=== PATIENT | female | born 1990 | race Caucasian/White ===

== ENCOUNTER 2023-11-04 19:07 | Observation (INO) ==
[2023-11-04] MEDS: Ondansetron 4 mg VIAL 2 MG/ML 2 ml VIAL IV ONE (19:38)
[2023-11-04] MEDS: Morphine 4 MG/ML VIAL (1 ml) IV ONE ×2 (19:38→21:28)
[2023-11-04] MEDS: Lactated Ringers 1000 ml BAG 1,000 ML IV ONE (19:39)
[2023-11-04 19:47] LABS: ABS Eosinophils 0.1 10^3/uL (0.0-0.5); ABS Monocytes 0.4 10^3/uL (0.0-0.9); ABS Neutrophils 5.5 10^3/uL (1.5-7.6); ABS Nucleated RBC 0.01 10^3/ul; Eosinophil % 1.1 %; Hematocrit 43.7 % (35-45); Hemoglobin 15.8 g/dL (11.5-14.3); Lymphocyte % 14.6 %; Mean Corpuscular Hemoglobin 31.1 pg (27-33); Mean Corpuscular Volume 86.3 fL (80-97); Nucleated Red Blood Cells % 0.2 %/100WBC (0.0-0.8); Platelet Count 220 10^3/uL (150-450); Red Blood Count 5.07 10^6/uL (3.63-4.92); Red Cell Distribution Width 12.3 % (12-17)
[2023-11-04 20:16] LABS: Urine Appearance Turbid; Urine Bilirubin Negative (Negative); Urine Blood 1+ (Negative); Urine Color Yellow; Urine Glucose Negative (Negative); Urine Ketones 1+ (Negative); Urine Nitrite Negative (Negative); Urine Protein 1+ (>=30 mg/dL) (Negative); Urine Specific Gravity 1.024 (1.002-1.030); Urine Urobilinogen Negative (Negative); Urine pH 8.5 (5.0-8.0)
[2023-11-04 20:26] LABS: Albumin 4.8 g/dL (3.2-5.2); Albumin/Globulin Ratio 1.9 (1-3); C Reactive Protein 6.58 mg/L (<8.01); Calcium 10.2 mg/dL (8.6-10.3); Creatinine, Serum 0.88 mg/dL (0.51-0.95); Globulin 2.5 g/dL (2-4); Potassium 3.9 mmol/L (3.5-5.0); Total Bilirubin 1.6 mg/dL (0.2-1.0); Total Protein 7.3 g/dL (6.4-8.9); Urine Bacteria Absent /HPF (Absent); Urine Red Blood Cell 1+(3-5/hpf) /HPF (0-Trace); Urine Squamous Epithelial Cell Present /HPF (Absent); Urine White Blood Cell 1+(6-10/hpf) /HPF (0-Trace)
[2023-11-04 20:39] LABS: High Sens Troponin Baseline < 3 pg/mL (<15)
[2023-11-04 21:33] LABS: High Sensitivity Troponin 1 Hr 3 pg/mL (<15)
[2023-11-04 21:36] LABS: HCG Pregnancy < 0.60 mIU/mL
[2023-11-04] MEDS: Iohexol 300 (CONTRAST) 10 ML SDV IV ONE (22:19)
[2023-11-05] MEDS: Lactated Ringers 1000 ml BAG 1,000 ML IV ONE ×2 (00:52→16:44)
[2023-11-05] MEDS: Haloperidol 5 mg/ml SDV IV/IM 5 MG/ML AMP IV SLOW PU ONE (01:37)
[2023-11-05] MEDS: Ondansetron 4 mg VIAL 2 MG/ML 2 ml VIAL IV ONE (01:53)
[2023-11-05 02:53] LABS: Calcium 8.7 mg/dL (8.6-10.3); Creatinine, Serum 0.78 mg/dL (0.51-0.95); Potassium 4.2 mmol/L (3.5-5.0); eGFR CKD-EPI 104.1 (>60)
[2023-11-05 03:16] LABS: Albumin 3.9 g/dL (3.2-5.2); Total Bilirubin 2.7 mg/dL (0.2-1.0); Total Protein 5.9 g/dL (6.4-8.9)
[2023-11-05 05:08] LABS: INR 1.12 (0.83-1.13)
[2023-11-05 05:49] LABS: Hepatitis B Surface Antigen Nonreactive (Nonreactive)
[2023-11-05 05:54] LABS: Hepatitis A Ab IgM Negative (Negative)
[2023-11-05 05:55] LABS: Hepatitis B Core IgM Nonreactive (Nonreactive)
[2023-11-05 06:06] LABS: Hepatitis C Antibody Negative (Negative)
[2023-11-05] MEDS: Morphine 4 MG/ML VIAL (1 ml) IV ONE (16:17)
[2023-11-06 05:04] LABS: Hematocrit 39.3 % (35-45); Hemoglobin 13.5 g/dL (11.5-14.3); Mean Corpuscular Hemoglobin 30.3 pg (27-33); Mean Corpuscular Hgb Conc 34.5 g/dL (31-36); Mean Corpuscular Volume 88.1 fL (80-97); Platelet Count 197 10^3/uL (150-450); Red Blood Count 4.46 10^6/uL (3.63-4.92); Red Cell Distribution Width 12.3 % (12-17); White Blood Count 4.6 10^3/uL (3.8-11.8)
[2023-11-06 05:28] LABS: Albumin 3.9 g/dL (3.2-5.2); Albumin/Globulin Ratio 1.9 (1-3); Calcium 8.7 mg/dL (8.6-10.3); Creatinine, Serum 0.88 mg/dL (0.51-0.95); Globulin 2.1 g/dL (2-4); Potassium 4.4 mmol/L (3.5-5.0); Total Bilirubin 0.8 mg/dL (0.2-1.0)
[2023-11-06 10:01] VITALS: BP 108/70
[2023-11-07 13:19] LABS: Cytomegalovirus IgG Antibody Positive (Negative); EBV Capsid Ag IgG Ab Positive (Negative); EBV Capsid Ag IgM Ab Positive (Negative); EBV, IgG Ab to Early Antigen Negative (Negative); Epstein-Barr Nuclear Antigen Positive (Negative)
[2023-11-08 19:15] LABS: Liver/Kidney Microsomes Ab <5.0 U
== END 2023-11-06 12:15 | disposition home or self-care (01) ==
LOC: EDHOLD 19:07 → ED 19:07 → SSU 11-05 16:30
PROVIDERS: ADMIT Internal Medicine; ATTEND Internal Medicine